=== PATIENT | male | born 1955 | race Hispanic/Latino ===

== ENCOUNTER 2017-04-15 17:32 | Emergency (ER) | payer OTHER ==
[~2017-04-15] VITALS: Ht 167.6 cm; Wt 99.8 kg
--- NOTE | 2017-04-15 18:37 | Diagnostic Imaging Report ---
PROCEDURE:X-RAY LEFT KNEE, THREE OR MORE VIEWS COMPARISON:None. INDICATIONS:FALL, LEFT KNEE PAIN FINDINGS: Normal mineralization. No acute displaced fracture or dislocation. No lytic or blastic lesion. Mild joint space narrowing in the medial femoral tibial compartment with mild subluxation. Small suprapatellar effusion. CONCLUSION: No acute displaced fracture or dislocation. Small suprapatellar effusion. Aris Larson M.D. Dictated by: Aris Larson M.D. on 04/15/2017 at 18:45 Electronically approved by: Aris Larson M.D. on 04/15/2017 at 18:45
--- NOTE | 2017-04-15 18:38 | Diagnostic Imaging Report ---
PROCEDURE:X-RAY RIGHT KNEE, THREE OR MORE VIEWS COMPARISON:None. INDICATIONS:FALL, RIGHT KNEE PAIN FINDINGS: Normal mineralization. No acute, displaced fracture or dislocation. No lytic or blastic lesions. Minimal degenerative joint disease, with presence of small osteophytes in the patella. Small suprapatellar effusion. CONCLUSION: Small suprapatellar effusion. No acute, displaced fracture or dislocation. Aris Larson M.D. Dictated by: Aris Larson M.D. on 04/15/2017 at 18:46 Electronically approved by: Aris Larson M.D. on 04/15/2017 at 18:46
[2017-04-15] MEDS ORDERED: HYDROCODONE/APAP 10MG-325MG TAB PO ONE (19:00)
== END 2017-04-15 19:31 | disposition home or self-care (01) ==
LOC: ER 17:32
DX: S80.02XA Contusion of left knee, initial encounter (principal); S80.01XA Contusion of right knee, initial encounter; W06.XXXA Fall from bed, initial encounter; Y92.003 Bedroom of unspecified non-institutional (private) residence as the place of occurrence of the external cause
CPT/HCPCS: 99283